=== PATIENT | male | born 1970 | race Caucasian/White ===

== ENCOUNTER 2023-11-26 12:28 | Outpatient (CLI) | payer OTHER, SELFPAY ==
[2023-11-26 12:49] VITALS: PULSE 85; RESP 18; O2SAT 97
[2023-11-26 12:54] VITALS: PULSE 89
[2023-11-26] MEDS: albuterol 2.5 mg/3 mL Neb INHALATION (12:55)
== END 2023-11-26 12:29 | disposition home or self-care (01) ==
PROVIDERS: Visit Provider Dermatology
DX: J44.9 Chronic obstructive pulmonary disease, unspecified (principal)
CPT/HCPCS: 94060; 94618; J7613